=== PATIENT | female | born 1955 | race Caucasian/White ===

== ENCOUNTER 2019-05-27 18:02 | Emergency (ER) | payer MEDICARE ==
--- NOTE | 2019-05-27 19:15 | EDM.PDOC ---
ED HPI GENERAL MEDICAL PROBLEM - General Chief Complaint: General Stated Complaint: MEDICAL Time Seen by Provider: 05/27/19 18:50 Source of Information: Reports: Patient, Old Records, RN History Limitations: Reports: No Limitations - History of Present Illness INITIAL COMMENTS - FREE TEXT/NARRATIVE: 63 yo female tripped on 05/07 and landed on her face. She has nausea and a STARKS that day. She was not seen for that fall. She has a pHx of 2 prior concussions and thinks her fall on 05/07 did result in a another concussion. She broke a bow on her glasses that have prisms and so has not been wearing them. While not wearing her glasses she has double vision and if she experiences eye strain as from reading she will then get a STARKS. She called the clinic today to report her sx's and was told to go straight to the ER. Onset: Gradual Onset Date: 05/08/19 Duration: Week(s):, Waxing/Waning Location: Reports: Head Quality: Reports: Ache (with eye strain) Severity: Mild Improves with: Reports: Other (lack of eye strain) Worsens with: Reports: Other (eye strain) Context: Reports: Other (see HPI) Associated Symptoms: Reports: Headaches, Other (double vision). 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 (see below) (none) - Related Data Allergies Allergy/AdvReac Type Severity Reaction Status Date / Time No Known Allergies Allergy Verified 05/27/19 18:38 Home Meds: Home Meds Calcium Carbonate [Calcium] 500 mg PO BID 02/03/14 [History] Cholecalciferol (Vitamin D3) [Vitamin D3] 5,000 units PO BEDTIME 02/03/14 [ History] Ibuprofen [Advil] 400 mg PO DAILY PRN 02/03/14 [History] Lisinopril 10 mg PO BEDTIME 02/03/14 [History] Multivitamin with Minerals [Multiple Vitamin] 1 tab PO DAILY 02/03/14 [History] Vitamin B Complex [B Complex] 1 tab PO DAILY 02/03/14 [History] atorvaSTATin Calcium [Atorvastatin Calcium] 20 mg PO BEDTIME 02/03/14 [History] fluvoxaMINE [Luvox] 100 mg PO DAILY 02/03/14 [History] lamoTRIgine [Lamictal] 50 mg PO BEDTIME 09/26/14 [History] Past Medical History HEENT History: Reports: None Cardiovascular History: Reports: High Cholesterol, Hypertension Respiratory History: Reports: None Gastrointestinal History: Reports: Chronic Constipation Genitourinary History: Reports: Other (See Below) Other Genitourinary History: Bladder infections Other Musculoskeletal History: left wrist 01/2014 left shoulder- tuberosity of humerous, 3 ribs and an elbow in 2013 Neurological History: Reports: Concussion, Vertigo Psychiatric History: Reports: Anxiety Endocrine/Metabolic History: Reports: Obesity/BMI 30+, Osteoporosis, Other (See Below) Other Endocrine/Metabolic History: Hypoglycimia Hematologic History: Reports: None Immunologic History: Reports: None Oncologic (Cancer) History: Reports: Cervix Dermatologic History: Reports: None - Past Surgical History GI Surgical History: Reports: Other (See Below) Other GI Surgeries/Procedures: Gastric bypass Social & Family History - Family History Family Medical History: Noncontributory - Tobacco Use Smoking Status *Q: Never Smoker - Caffeine Use Caffeine Use: Reports: Coffee - Recreational Drug Use Recreational Drug Use: No ED ROS GENERAL - Review of Systems Review Of Systems: See Below Constitutional: Reports: No Symptoms HEENT: Reports: Other (diplopia when not wearing her glasses) Respiratory: Reports: No Symptoms Cardiovascular: Reports: No Symptoms Endocrine: Reports: No Symptoms GI/Abdominal: Reports: No Symptoms : Reports: No Symptoms Musculoskeletal: Reports: No Symptoms Skin: Reports: No Symptoms Neurological: Reports: Headache (associated with eye strain) ED EXAM, GENERAL - Physical Exam Exam: See Below Exam Limited By: No Limitations General Appearance: Alert, WD/WN, No Apparent Distress Eye Exam: Bilateral Eye: EOMI, Normal Inspection, PERRL Ears: Normal External Exam, Normal Canal, Hearing Grossly Normal, Normal TMs Ear Exam: Bilateral Ear: Auricle Normal, Canal Normal, TM normal Nose: Normal Inspection, No Blood Throat/Mouth: Normal Inspection, Normal Lips, Normal Oropharynx, Normal Voice, No Airway Compromise Head: Atraumatic, Normocephalic Neck: Normal Inspection Respiratory/Chest: No Respiratory Distress, Lungs Clear, Normal Breath Sounds, No Accessory Muscle Use Cardiovascular: Regular Rate, Rhythm, No Edema GI/Abdominal: Normal Bowel Sounds, Soft, Non-Tender, No Distention Back Exam: Normal Inspection. No: CVA Tenderness (R), CVA Tenderness (L) Extremities: Normal Inspection, Normal Range of Motion, Non-Tender, No Pedal Edema Neurological: Alert, Oriented, CN II-XII Intact, Normal Cognition, No Motor/ Sensory Deficits Psychiatric: Normal Affect, Normal Mood Skin Exam: Warm, Dry, Intact, Normal Color, No Rash Course - Vital Signs Last Recorded V/S: Last Vital Signs Temp 36.2 C 05/27/19 18:28 Pulse 69 05/27/19 18:28 Resp 16 05/27/19 18:28 BP 143/64 H 05/27/19 18:28 Pulse Ox 96 05/27/19 18:28 Departure - Departure Time of Disposition: 19:16 Disposition: Home, Self-Care 01 Condition: Good Clinical Impression: Diplopia - Discharge Information *PRESCRIPTION DRUG MONITORING PROGRAM REVIEWED*: Not Applicable *COPY OF PRESCRIPTION DRUG MONITORING REPORT IN PATIENT JEN: Not Applicable Referrals: Maria A Honeycutt PA-C [Primary Care Provider] - Additional Instructions: Get your eye glasses repaired as soon as possible and then use them as before. In the interim if you need to read anything close one eye as this will eliminate the double vision until you can resume use of your eye glasses. Recheck with your doctor as needed. Sepsis Event Note - Evaluation Sepsis Screening Result: No Definite Risk - Focused Exam Vital Signs: Vital Signs Temp Pulse Resp BP Pulse Ox 05/27/19 18:28 36.2 C 69 16 143/64 H 96 05/27/19 18:25 36.2 C 69 16 143/64 H 96 Date Exam was Performed: 05/27/19 Time Exam was Performed: 19:10
[2019-05-27 19:24] VITALS: BP 123/56; PULSE 60
== END 2019-05-27 19:23 | disposition home or self-care (01) ==
LOC: JP.ED 18:02
DX: H53.2 Diplopia (principal); I10 Essential (primary) hypertension; E78.00 Pure hypercholesterolemia, unspecified; E66.9 Obesity, unspecified; Z68.35 Body mass index [BMI] 35.0-35.9, adult; Z79.899 Other long term (current) drug therapy
CPT/HCPCS: 99282; 99283

== ENCOUNTER 2022-12-31 15:52 | Emergency (ER) | payer MEDICARE ==
[2022-12-31 16:03] VITALS: BP 182/68; PULSE 59
[2022-12-31] MEDS ORDERED: Diphtheria,Pertussis(Acell),Tetanus Vaccine 0.5 ML Syringe IM ONE (16:30)
[2022-12-31] MEDS ORDERED: Bacitracin Oint 1 GM U/D Packet TOP ONE (16:30)
== END 2022-12-31 16:45 | disposition home or self-care (01) ==
LOC: JP.ED 15:52
DX: S61.311A Laceration without foreign body of left index finger with damage to nail, initial encounter (principal); I10 Essential (primary) hypertension; E66.9 Obesity, unspecified; Z79.899 Other long term (current) drug therapy; W26.9XXA Contact with unspecified sharp object(s), initial encounter
CPT/HCPCS: 11760; 90471; 90715; 99282; 99282-25

== ENCOUNTER 2023-09-05 06:53 | Day surgery (SDC) | payer MEDICARE, OTHER ==
[2023-09-05] MEDS ORDERED: fentaNYL 100 MCG/2 ML SDV ONE (07:23)
[2023-09-05] MEDS ORDERED: Propofol 200 MG/20 ML SDV ONE (07:23)
[2023-09-05] MEDS: Sodium Chloride 0.9% 1,000 ML IV SCH (07:45)
[2023-09-05 09:53] VITALS: BP 102/41; PULSE 58
== END 2023-09-05 10:05 | disposition home or self-care (01) ==
LOC: JP.SDS 06:53
PROVIDERS: ATTEND Surgery
DX: T18.2XXA Foreign body in stomach, initial encounter (principal); R13.10 Dysphagia, unspecified; E78.5 Hyperlipidemia, unspecified; I10 Essential (primary) hypertension; E66.9 Obesity, unspecified; E11.9 Type 2 diabetes mellitus without complications; Z98.84 Bariatric surgery status
CPT/HCPCS: 00731-QZ; 88305; J2704; J3010; J7030